=== PATIENT | female | born 1975 | race Caucasian/White ===

== ENCOUNTER → 2022-01-03 14:05 | Outpatient (CLI) | payer MEDICARE, SELFPAY ==
--- NOTE | ~2022-01-03 | XR_ITS ---
XR abdomen/kub 1V DATE: 01/03/2022 14:24 INDICATION: Change in bowel habits TECHNIQUE: AP views COMPARISON: None FINDINGS: Nonspecific bowel gas pattern, without evidence of obstruction. The psoas shadows are inta ct. No visceromegaly. No significant abnormal calcification. The lung bases are clear. Heart size appears normal. IMPRESSION: Nonspecific abdomen Reviewed, dictated and finalized at [facility]. Reviewed, dictated and finalized at [facility]. IMPRESSION: Nonspecific abdomen
== END ==
PROVIDERS: PCP Family Medicine; Visit Provider Nurse Practitioner Family
DX: R19.4 Change in bowel habit (principal)
CPT/HCPCS: 74018